=== PATIENT | male | born 1950 | race Caucasian/White ===

== ENCOUNTER 2022-01-28 12:40 | Outpatient (CLI) | payer MEDICARE, SELFPAY ==
[2022-01-28 20:50] LABS: Alanine Aminotransferase 22 U/L (6-50); Albumin Level 4.3 g/dL (3.5-5.1); Alkaline Phosphatase 72 U/L (38-126); Anion Gap 13 mmol/L (8-16); Aspartate Amino Transferase 38 U/L (17-59); Bilirubin,Total 1.3 mg/dL (0.2-1.3); Blood Urea Nitrogen 23 mg/dL (9-20); Calcium 9.3 mg/dL (8.4-10.2); Carbon Dioxide 30 mmol/L (22-30); Chloride 94 mmol/L (98-107); Estimated Glomerular Filt Rate 60; Glucose 140 mg/dL (65-110); Potassium 3.9 mmol/L (3.4-5.0); Sodium 137 mmol/L (137-145)
[2022-01-28 20:51] LABS: Hemoglobin A1C 6.8 % (<5.7)
== END 2022-01-28 12:41 | disposition home or self-care (01) ==
LOC: ANHGOSHLAB 12:43
PROVIDERS: PCP Family Medicine; Visit Provider Family Medicine
DX: E11.9 Type 2 diabetes mellitus without complications (principal); E78.5 Hyperlipidemia, unspecified; I48.0 Paroxysmal atrial fibrillation; I50.22 Chronic systolic (congestive) heart failure; I12.9 Hypertensive chronic kidney disease with stage 1 through stage 4 chronic kidney disease, or unspecified chronic kidney disease; N18.30 Chronic kidney disease, stage 3 unspecified
CPT/HCPCS: 36415; 80053; 83036

== ENCOUNTER → 2022-04-26 08:44 | Outpatient (CLI) | payer MEDICARE, SELFPAY ==
--- NOTE | ~2022-04-26 | US_ITS ---
Limited Abdominal Sonogram: Real-time sonographic imaging of the right upper quadrant was performed. Clinical History: Abnormal liver findings on outside exam Findings: The liver appears normal with no evidence of mass lesion or bile duct dilatation. Main por isai vein demonstrates normal direction of flow. The gallbladder is relatively contracted, probable sl udge and echogenic, shadowing stones. No definite gallbladder wall thickening. The common bile duct m easures 3 mm. The visualized pancreas, aorta, and IVC are unremarkable. Impression: Cholelithiasis and probable gallbladder sludge. Reviewed, dictated and finalized at location [] ULAR CLERK Impression: Cholelithiasis and probable gallbladder sludge.
== END ==
PROVIDERS: PCP Family Medicine; Visit Provider Family Medicine
DX: R93.2 Abnormal findings on diagnostic imaging of liver and biliary tract (principal); K80.20 Calculus of gallbladder without cholecystitis without obstruction
CPT/HCPCS: 76705

== ENCOUNTER 2022-07-17 09:49 | Outpatient (CLI) | payer MEDICARE, SELFPAY ==
[2022-07-17 18:10] LABS: Basophils Absolute Auto 0.1 K/mm3 (0.0-0.1); Basophils Percent Auto 0.9 % (0.2-1.2); Eosinophils Absolute Auto 0.3 K/mm3 (0-0.3); Eosinophils Percent Auto 4.2 % (0-4.4); Hematocrit 42.1 % (42.0-52.0); Hemoglobin 14.4 g/dL (14.0-18.0); Immature Granulocyte Absolute 0.04 K/mm3 (0.00-0.031); Immature Granulocyte Percent A 0.6 % (0-0.5); Lymphocytes Absolute Auto 0.79 K/mm3 (0.9-3.2); Lymphocytes Percent Auto 11.8 % (18.3-44.2); Mean Corpuscular HGB Conc 34.2 g/dl (32-36); Mean Corpuscular Hemoglobin 32.6 pg (26-34); Mean Corpuscular Volume 95.2 fl (80-100); Mean Platelet Volume 10.8 fl (7.4-10.4); Monocytes Absolute Auto 0.7 K/mm3 (0.1-0.6); Monocytes Percent Auto 10.8 % (2.6-8.5); Neutrophils Absolute Auto 4.8 K/mm3 (1.3-6.7); Neutrophils Percent Auto 71.7 % (45.5-73.1); Platelet Count Result 165 k/mm3 (150-375); Red Blood Count 4.42 M/mm3 (4.6-6.20); Red Cell Distribution Width 12.5 % (11.5-14.5); White Blood Count 6.7 K/mm3 (4.5-10.0)
[2022-07-17 18:34] LABS: Alanine Aminotransferase 27 U/L (6-50); Albumin Level 4.4 g/dL (3.5-5.1); Alkaline Phosphatase 101 U/L (38-126); Anion Gap 5 mmol/L (8-16); Aspartate Amino Transferase 42 U/L (17-59); Bilirubin,Total 0.8 mg/dL (0.2-1.3); Blood Urea Nitrogen 19 mg/dL (9-20); Calcium 9.8 mg/dL (8.4-10.2); Carbon Dioxide 32 mmol/L (22-30); Chloride 99 mmol/L (98-107); Cholesterol 174 mg/dL (0-200); Estimated Glomerular Filt Rate > 60; Glucose 148 mg/dL (65-110); HDL Direct 76 mg/dL; Potassium 5.5 mmol/L (3.4-5.0); Sodium 136 mmol/L (137-145); Triglycerides 99 mg/dL (<150)
[2022-07-17 18:50] LABS: LDL Cholesterol Direct 74 mg/dL
[2022-07-17 18:54] LABS: Creatinine Urine 60.6 mg/dL
[2022-07-17 18:55] LABS: Vitamin D 25 Hydroxy 47.7 ng/mL
[2022-07-17 18:57] LABS: MALB Creatinine Ratio 132.7 mg/g (0-30); Microalbumin Urine Random 80.4 mg/L (0-16.7)
[2022-07-17 19:18] LABS: Hemoglobin A1C 6.9 % (<5.7)
== END 2022-07-17 09:50 | disposition home or self-care (01) ==
LOC: ANHGOSHLAB 09:51
PROVIDERS: PCP Family Medicine; Visit Provider Family Medicine
DX: E78.5 Hyperlipidemia, unspecified (principal); E11.9 Type 2 diabetes mellitus without complications; Z95.2 Presence of prosthetic heart valve; Z12.5 Encounter for screening for malignant neoplasm of prostate; I25.10 Atherosclerotic heart disease of native coronary artery without angina pectoris; I48.0 Paroxysmal atrial fibrillation; G25.2 Other specified forms of tremor; E53.8 Deficiency of other specified B group vitamins; E55.9 Vitamin D deficiency, unspecified; I10 Essential (primary) hypertension
CPT/HCPCS: 36415; 80053; 80061; 82043; 82306; 82607; 83036; 84153; 84443; 85025; G0103

== ENCOUNTER 2022-07-26 12:34 | Outpatient (RCR) | payer MEDICARE, SELFPAY ==
--- NOTE | 2022-07-26 13:55 | PTOPEVDC ---
Assessment and note entered by Kathe Cochran, PT, DPT Thank you for referring Calos Avila to [facility].? An evaluation has been completed. No further treatment is needed. Evaluation Information Assessment Status Evaluation Diagnosis deconditioning Onset 6 years Subjective Information Pt states he had major heart surgery 6 years ago, he states that surgery caused him to lose all of his muscle mass. Pt states he fell in Feb of last year, that caused him not to go to the gym for about 3 months. Prior to his falls he states he and his have gone to the gym 6x/wk for 30 mins a day. They started returning to the gym last week. Reported Pain Level Pain Score 0: Self Report Assessment PT Clinical Summary Calos presents to therapy today for his initial evaluation with a diagnosis of unsteadiness on feet and ursula knee pain. Pt reports not being limited by pain this date. During functional movement and balance assessments but scores well on all of the tests. He completed the TUG in 15.4s (15s in the cutoff score), 12s on the TUG (12s in the cutoff score), 49/56 on the RUFFIN (anything < 45 at greater risk for falls). He demonstrates a gait speed that is slightly slower compared to his age matched peers. Upon evaluation it was determined that Calos demonstrates good safety awareness, good balance, and good strength and does not requires skilled therapy interventions at this time. He was issued a home program and was instructed to complete these in addition to his daily exercises. Plan of Care PT Services Indicated No Treatment Frequency and discharge, no skilled needs Duration
== END 2022-07-26 15:52 | disposition home or self-care (01) ==
LOC: ANHGOSHPT 12:34
PROVIDERS: PCP Family Medicine; Visit Provider Family Medicine
DX: R26.81 Unsteadiness on feet (principal); M25.561 Pain in right knee; M25.562 Pain in left knee
CPT/HCPCS: 97110; 97161

== ENCOUNTER 2022-07-26 12:35 | Outpatient (CLI) | payer MEDICARE, SELFPAY ==
[2022-07-26 19:46] LABS: Anion Gap 6 mmol/L (8-16); Blood Urea Nitrogen 23 mg/dL (9-20); Calcium 10.3 mg/dL (8.4-10.2); Carbon Dioxide 31 mmol/L (22-30); Chloride 95 mmol/L (98-107); Estimated Glomerular Filt Rate 60; Glucose 107 mg/dL (65-110); Potassium 5.4 mmol/L (3.4-5.0); Sodium 132 mmol/L (137-145)
[2022-07-29 21:33] LABS: PSA, Free 0.56 ng/mL; PSA, Total 4.4 ng/mL (<=4.0); Percent Free Prostate Spec Ag 13 % (>25)
== END 2022-07-26 12:36 | disposition home or self-care (01) ==
LOC: ANHGOSHLAB 12:38
PROVIDERS: PCP Family Medicine; Visit Provider Family Medicine
DX: R97.20 Elevated prostate specific antigen [PSA] (principal); E87.5 Hyperkalemia
CPT/HCPCS: 36415; 80048; 84153; 84154; 97110; 97161

== ENCOUNTER 2022-08-15 08:19 | Outpatient (CLI) | payer MEDICARE, SELFPAY ==
[2022-08-15 18:50] LABS: Alanine Aminotransferase 24 U/L (6-50); Albumin Level 4.4 g/dL (3.5-5.1); Alkaline Phosphatase 80 U/L (38-126); Anion Gap 5 mmol/L (8-16); Aspartate Amino Transferase 32 U/L (17-59); Bilirubin,Total 1.3 mg/dL (0.2-1.3); Blood Urea Nitrogen 17 mg/dL (9-20); Calcium 9.5 mg/dL (8.4-10.2); Carbon Dioxide 33 mmol/L (22-30); Chloride 95 mmol/L (98-107); Estimated Glomerular Filt Rate > 60; Glucose 145 mg/dL (65-110); Potassium 5.1 mmol/L (3.4-5.0); Sodium 133 mmol/L (137-145)
== END 2022-08-15 08:20 | disposition home or self-care (01) ==
LOC: ANHGOSHLAB 08:20
PROVIDERS: PCP Family Medicine; Visit Provider Nurse Practitioner
DX: E87.5 Hyperkalemia (principal)
CPT/HCPCS: 36415; 80053

== ENCOUNTER 2022-09-05 08:09 | Outpatient (CLI) | payer MEDICARE, SELFPAY ==
[2022-09-05 19:34] LABS: Alanine Aminotransferase 25 U/L (6-50); Albumin Level 4.2 g/dL (3.5-5.1); Alkaline Phosphatase 74 U/L (38-126); Anion Gap 3 mmol/L (8-16); Aspartate Amino Transferase 37 U/L (17-59); Blood Urea Nitrogen 18 mg/dL (9-20); Calcium 9.7 mg/dL (8.4-10.2); Carbon Dioxide 36 mmol/L (22-30); Chloride 96 mmol/L (98-107); Estimated Glomerular Filt Rate > 60; Glucose 142 mg/dL (65-110); Potassium 4.2 mmol/L (3.4-5.0); Sodium 135 mmol/L (137-145)
== END 2022-09-05 08:10 | disposition home or self-care (01) ==
LOC: ANHGOSHLAB 08:10
PROVIDERS: PCP Family Medicine; Visit Provider Family Medicine
DX: E87.5 Hyperkalemia (principal); I10 Essential (primary) hypertension
CPT/HCPCS: 36415; 80053

== ENCOUNTER 2023-01-16 10:02 | Outpatient (CLI) | payer MEDICARE, SELFPAY ==
[2023-01-16 19:14] LABS: Alanine Aminotransferase 21 U/L (6-50); Albumin Level 4.2 g/dL (3.5-5.1); Alkaline Phosphatase 73 U/L (38-126); Anion Gap 5 mmol/L (8-16); Aspartate Amino Transferase 35 U/L (17-59); Bilirubin,Total 1.2 mg/dL (0.2-1.3); Blood Urea Nitrogen 19 mg/dL (9-20); Calcium 9.7 mg/dL (8.4-10.2); Carbon Dioxide 34 mmol/L (22-30); Chloride 96 mmol/L (98-107); Estimated Glomerular Filt Rate > 60; Glucose 123 mg/dL (65-110); Potassium 4.8 mmol/L (3.4-5.0); Sodium 135 mmol/L (137-145)
[2023-01-16 20:15] LABS: Hemoglobin A1C 6.3 % (<5.7)
== END 2023-01-16 10:03 | disposition home or self-care (01) ==
PROVIDERS: PCP Family Medicine; Visit Provider Family Medicine
DX: E11.9 Type 2 diabetes mellitus without complications (principal); I10 Essential (primary) hypertension; Z79.899 Other long term (current) drug therapy
CPT/HCPCS: 36415; 80053; 83036

== ENCOUNTER 2023-03-11 08:44 | Outpatient (CLI) | payer MEDICARE, SELFPAY ==
[2023-03-11 18:46] LABS: Anion Gap 5 mmol/L (8-16); Blood Urea Nitrogen 25 mg/dL (9-20); Calcium 9.6 mg/dL (8.4-10.2); Carbon Dioxide 33 mmol/L (22-30); Chloride 97 mmol/L (98-107); Estimated Glomerular Filt Rate > 60; Glucose 113 mg/dL (65-110); Sodium 135 mmol/L (137-145)
== END 2023-03-11 08:45 | disposition home or self-care (01) ==
PROVIDERS: PCP Family Medicine; Visit Provider Internal Medicine Cardiovascular Disease
DX: I50.32 Chronic diastolic (congestive) heart failure (principal)
CPT/HCPCS: 36415; 80048

== ENCOUNTER 2023-07-21 09:32 | Outpatient (CLI) | payer MEDICARE, SELFPAY ==
[2023-07-21 10:40] LABS: Basophils Absolute Auto 0.1 K/mm3 (0.0-0.1); Basophils Percent Auto 0.9 % (0.2-1.2); Eosinophils Absolute Auto 0.3 K/mm3 (0-0.3); Eosinophils Percent Auto 3.9 % (0-4.4); Hematocrit 42.8 % (42.0-52.0); Hemoglobin 14.5 g/dL (14.0-18.0); Immature Granulocyte Absolute 0.03 K/mm3 (0.00-0.031); Immature Granulocyte Percent A 0.4 % (0-0.5); Lymphocytes Absolute Auto 0.71 K/mm3 (0.9-3.2); Lymphocytes Percent Auto 10.3 % (18.3-44.2); Mean Corpuscular HGB Conc 33.9 g/dl (32-36); Mean Corpuscular Hemoglobin 33.1 pg (26-34); Mean Corpuscular Volume 97.7 fl (80-100); Mean Platelet Volume 10.5 fl (7.4-10.4); Monocytes Absolute Auto 0.8 K/mm3 (0.1-0.6); Monocytes Percent Auto 11.1 % (2.6-8.5); Neutrophils Absolute Auto 5.1 K/mm3 (1.3-6.7); Neutrophils Percent Auto 73.4 % (45.5-73.1); Platelet Count Result 182 k/mm3 (150-375); Red Blood Count 4.38 M/mm3 (4.6-6.20); Red Cell Distribution Width 12.3 % (11.5-14.5); White Blood Count 6.9 K/mm3 (4.5-10.0)
[2023-07-21 10:47] LABS: Alanine Aminotransferase 22 U/L (6-50); Anion Gap 9 mmol/L (8-16); Aspartate Amino Transferase 40 U/L (17-59); Bilirubin,Total 1.7 mg/dL (0.2-1.3); Blood Urea Nitrogen 25 mg/dL (9-20); Carbon Dioxide 29 mmol/L (22-30); Chloride 97 mmol/L (98-107); Estimated Glomerular Filt Rate 60; Glucose 106 mg/dL (65-110); Potassium 4.4 mmol/L (3.4-5.0); Sodium 135 mmol/L (137-145)
[2023-07-21 10:48] LABS: Albumin Level 4.3 g/dL (3.5-5.1); Alkaline Phosphatase 88 U/L (38-126); Cholesterol 176 mg/dL (0-200); HDL Direct 90 mg/dL; Triglycerides 90 mg/dL (<150)
[2023-07-21 10:59] LABS: LDL Cholesterol Direct 74 mg/dL
[2023-07-21 11:07] LABS: Hemoglobin A1C 6.5 % (<5.7)
[2023-07-21 19:27] LABS: Vitamin D 25 Hydroxy 44.1 ng/mL
[2023-07-21 20:14] LABS: Creatinine Urine 39.5 mg/dL
[2023-07-21 20:17] LABS: MALB Creatinine Ratio 162.8 mg/g (0-30); Microalbumin Urine Random 64.3 mg/L (0-16.7)
== END 2023-07-21 09:33 | disposition home or self-care (01) ==
PROVIDERS: PCP Family Medicine; Visit Provider Family Medicine
DX: E11.9 Type 2 diabetes mellitus without complications (principal); E53.8 Deficiency of other specified B group vitamins; E55.9 Vitamin D deficiency, unspecified; G25.2 Other specified forms of tremor; I48.0 Paroxysmal atrial fibrillation; I50.22 Chronic systolic (congestive) heart failure; Z00.00 Encounter for general adult medical examination without abnormal findings; Z95.2 Presence of prosthetic heart valve; I10 Essential (primary) hypertension; E78.5 Hyperlipidemia, unspecified
CPT/HCPCS: 36415; 80053; 80061; 82043; 82306; 82607; 83036; 84443; 85025

== ENCOUNTER 2023-12-23 10:16 | Outpatient (CLI) | payer MEDICARE, SELFPAY ==
--- NOTE | ~2023-12-23 | XR_ITS ---
XR hand RT min 3V Ordering provider: Ascencion Navarrete MD History: . No injury pain swelling and redness 2nd mp joint for 2 weeks . Comparison: None. FINDINGS: BONES: No acute fracture or dislocation. JOINT SPACES: Narrowing of the proximal and distal interphalangeal joints. Deformity seen in the fift h finger proximal interphalangeal joint. SOFT TISSUES: Normal. IMPRESSION: No acute osseous abnormality right hand. Multiple joint osteoarthritic changes. Deformity in the fifth finger at the proximal interphalangeal joint. Reviewed, dictated and finalized at location A. IMPRESSION: No acute osseous abnormality right hand. Multiple joint osteoarthritic changes. Deformity in the fifth finger at the pro ximal interphalangeal joint.
== END 2023-12-23 10:17 ==
PROVIDERS: PCP Family Medicine; Visit Provider Family Medicine
DX: M79.89 Other specified soft tissue disorders (principal); M19.041 Primary osteoarthritis, right hand
CPT/HCPCS: 73130

== ENCOUNTER 2023-12-23 10:30 | Outpatient (CLI) | payer MEDICARE, SELFPAY ==
[2023-12-23 19:31] LABS: Hemoglobin A1C 6.2 % (<5.7)
[2023-12-23 19:46] LABS: Alanine Aminotransferase 19 U/L (6-50); Albumin Level 4.2 g/dL (3.5-5.1); Alkaline Phosphatase 90 U/L (38-126); Anion Gap 8 mmol/L (4-12); Aspartate Amino Transferase 32 U/L (17-59); Bilirubin,Total 1.2 mg/dL (0.2-1.3); Blood Urea Nitrogen 25 mg/dL (9-20); Calcium 9.6 mg/dL (8.4-10.2); Carbon Dioxide 33 mmol/L (22-30); Chloride 94 mmol/L (98-107); Estimated Glomerular Filt Rate 50; Glucose 154 mg/dL (65-110); Potassium 4.2 mmol/L (3.4-5.0); Sodium 135 mmol/L (137-145); Uric Acid 7.4 mg/dL (3.5-8.5)
== END 2023-12-23 10:31 | disposition home or self-care (01) ==
LOC: ANHGOSHLAB 10:31
PROVIDERS: PCP Family Medicine; Visit Provider Family Medicine
DX: E11.9 Type 2 diabetes mellitus without complications (principal); I10 Essential (primary) hypertension; M10.00 Idiopathic gout, unspecified site
CPT/HCPCS: 36415; 80053; 83036; 84550

== ENCOUNTER 2024-02-05 07:51 | Outpatient (RCR) | payer MEDICARE, SELFPAY ==
--- NOTE | 2024-02-05 08:35 | OTOPEVDC ---
Assessment and note entered by Vishal Smith, OTR/Tyler, CHT Thank you for referring Calos Avila to [facility].? An evaluation has been completed. No further treatment is needed. Evaluation Information & Discharge Notification 02/05/24 Assessment Status Evaluation Diagnosis Pain in right hand, Pain in left hand Subjective Information Patient has a history of gout. He reports his right MCP joint swelled up about 2 months ago, he was experiencing pain and stiffness in his right hand. He reports it has improved immensely. He reports no longer experiencing functional limitations with ADLs. He is retired. Reported Pain Level Pain Score 0: Self Report Assessment OT Clinical Summary Patient referred to OT with pain in bilateral hands. At this time he is no longer experiencing pain or limitations. He reports he wanted to attend the appointment to see if there is anything he can learn. Educated on ROM HEP and he completes with excellent understanding. His slat grader strengths are slightly decreased compared to the norm. He declines putty HEP reporting he has various slat grader strengthening tools at home. Discussed when it's appropriate to use those vs. just performing light ROM. He verbalizes excellent understanding of all materials. Discharging OT with patient independent with HEP. Plan of Care OT Services Indicated No
== END 2024-02-05 09:35 | disposition home or self-care (01) ==
LOC: ANHGOSHOT 07:51
PROVIDERS: PCP Family Medicine; Visit Provider Family Medicine
DX: M79.641 Pain in right hand (principal); M79.642 Pain in left hand
CPT/HCPCS: 97110; 97165

== ENCOUNTER 2024-02-11 08:49 | Outpatient (CLI) | payer MEDICARE, SELFPAY ==
[2024-02-11 19:39] LABS: Alanine Aminotransferase 14 U/L (6-50); Albumin Level 3.9 g/dL (3.5-5.1); Alkaline Phosphatase 73 U/L (38-126); Anion Gap 7 mmol/L (4-12); Aspartate Amino Transferase 31 U/L (17-59); Blood Urea Nitrogen 20 mg/dL (9-20); Calcium 9.7 mg/dL (8.4-10.2); Carbon Dioxide 32 mmol/L (22-30); Chloride 96 mmol/L (98-107); Estimated Glomerular Filt Rate > 60; Glucose 224 mg/dL (65-110); Potassium 4.4 mmol/L (3.4-5.0); Sodium 135 mmol/L (137-145)
== END 2024-02-11 08:50 | disposition home or self-care (01) ==
PROVIDERS: PCP Family Medicine; Visit Provider Family Medicine
DX: I10 Essential (primary) hypertension (principal)
CPT/HCPCS: 36415; 80053

== ENCOUNTER 2024-03-29 07:30 | Emergency (ER) | payer MEDICARE, SELFPAY ==
[2024-03-29 07:38] VITALS: BP 124/75; PULSE 72; RESP 19; TEMP 36.4; O2SAT 100
--- NOTE | 2024-03-29 07:51 | ECG_ITS ---
Test Date: 2024-03-29 07:49:19 Measurements Intervals [place] Rate: 72 P: 0 TN: 0 QRS: 36 QRSD: 93 T: 16 QT: 394 QTc: 434 Interpretive Statements ATRIAL FIBRILLATION POSSIBLE ANTERIOR MYOCARDIAL INFARCTION , PROBABLY OLD BASELINE ARTIFACT- II, III, AVR, AVL, AVF, V1 ABNORMAL ECG No previous ECG available for comparison Electronically Signed On 03-29-2024 08:10:57 [employer]OR [employer] by Terry Conway D.O.
[2024-03-29 08:08] LABS: Basophils Percent Auto 0.8 % (0.2-1.2); Eosinophils Absolute Auto 0.2 K/mm3 (0-0.3); Eosinophils Percent Auto 3.8 % (0-4.4); Hemoglobin 14.5 g/dL (14.0-18.0); Immature Granulocyte Absolute 0.06 K/mm3 (0.00-0.031); Immature Granulocyte Percent A 1.1 % (0-0.5); Lymphocytes Absolute Auto 1.25 K/mm3 (0.9-3.2); Lymphocytes Percent Auto 23.8 % (18.3-44.2); Mean Corpuscular HGB Conc 35.4 g/dl (32-36); Mean Corpuscular Hemoglobin 33.9 pg (26-34); Mean Corpuscular Volume 95.8 fl (80-100); Mean Platelet Volume 9.6 fl (7.4-10.4); Monocytes Absolute Auto 0.4 K/mm3 (0.1-0.6); Monocytes Percent Auto 7.4 % (2.6-8.5); Neutrophils Absolute Auto 3.3 K/mm3 (1.3-6.7); Neutrophils Percent Auto 63.1 % (45.5-73.1); Platelet Count Result 152 k/mm3 (150-375); Red Blood Count 4.28 M/mm3 (4.6-6.20); Red Cell Distribution Width 12.6 % (11.5-14.5); White Blood Count 5.3 K/mm3 (4.5-10.0)
[2024-03-29 08:20] LABS: Alanine Aminotransferase 16 U/L (6-50); Albumin Level 4.1 g/dL (3.5-5.1); Alkaline Phosphatase 75 U/L (38-126); Anion Gap 14 mmol/L (4-12); Aspartate Amino Transferase 30 U/L (17-59); Bilirubin,Total 0.4 mg/dL (0.2-1.3); Blood Urea Nitrogen 18 mg/dL (9-20); Calcium 9.6 mg/dL (8.4-10.2); Carbon Dioxide 23 mmol/L (22-30); Chloride 96 mmol/L (98-107); Estimated CRCL calculation 55 ml/min; Estimated Glomerular Filt Rate > 60; Glucose 95 mg/dL (65-110); Potassium 3.9 mmol/L (3.4-5.0); Sodium 133 mmol/L (137-145)
[2024-03-29 08:22] LABS: Prothrombin Time 13.8 Seconds (11.1-14.7)
[2024-03-29 08:23] LABS: Partial Thromboplastin Time 30.8 Seconds (22.3-36.8)
[2024-03-29 08:30] VITALS: BP 119/80; PULSE 83; RESP 15; O2SAT 99
[2024-03-29 08:43] LABS: Influenza A QL RT-PCR Negative (Negative); Influenza B QL RT-PCR Negative (Negative); RSV RNA, RT-PCR Negative (Negative); SARS-CoV-2 RNA PCR Negative (Negative)
--- NOTE | 2024-03-29 08:43 | ED.GENADULT ---
HPI - General Adult General Chief complaint: Altered Mental Status Stated complaint: confusion Time Seen by Provider: 03/29/24 07:50 History of Present Illness HPI narrative: 73-year-old male with history of large prostate present to the emergency department for evaluation for acute onset of confusion with associated urinary pain. Patient did start taking Keflex last night due to concern for a urinary tract infection. Patient does describe worsening urinary retention, decreased urinary caliber and intermittently requiring the need to sit down to urinate. Patient does follow-up with Urology for large prostate. Patient states he has been unable to urinate since last night. Patient does describe lower abdominal discomfort. Bedside bladder scan did show greater than 2400 mL of retained urine. Related Data Home Medications Medication Instructions Recorded Confirmed apixaban 5 mg tablet (Eliquis) 5 mg PO BID 04/02/19 01/26/24 aspirin 81 mg tablet,delayed 81 mg PO DAILY 04/02/19 01/26/24 release (Adult Aspirin Regimen) carvedilol 12.5 mg tablet 12.5 mg PO Q12H 04/02/19 01/26/24 furosemide 40 mg tablet 40 mg PO QAM 04/02/19 01/26/24 acetaminophen 650 mg 650 mg PO Q8H 01/03/20 01/26/24 tablet,extended release ferrous sulfate 325 mg (65 mg 325 mg PO DAILY 01/03/20 01/26/24 iron) tablet (iron) atorvastatin 40 mg tablet 40 mg PO QHS 01/28/22 01/26/24 diphenhydramine HCl 50 mg capsule 50 mg PO QHS 01/28/22 01/26/24 (Unisom SleepGels) omeprazole magnesium 20 mg 20 mg PO DAILY PRN 07/17/22 01/26/24 tablet,delayed release (Prilosec OTC) cholecalciferol (vitamin D3) 25 25 mcg PO DAILY 01/16/23 01/26/24 mcg (1,000 unit) tablet docusate sodium 100 mg capsule 100 mg PO DAILY 01/16/23 01/26/24 (Dulcolax Stool Softener (docusate)) spironolactone 25 mg tablet 12.5 mg PO DAILY 01/16/23 01/26/24 Allergies Allergy/AdvReac Type Severity Reaction Status Date / Time No Known Allergies Allergy Verified 03/29/24 07:43 Review of Systems Review of Systems: All systems reviewed & are unremarkable except as noted in HPI and below [facility] Past Medical History Medical History Ascending aortic aneurysm CAD in [place] artery Chronic low back pain without sciatica Chronic systolic congestive heart failure Dyslipidemia Elevated PSA Essential (primary) hypertension Intention tremor Osteoarthritis Paroxysmal atrial fibrillation Renal insufficiency Type 2 diabetes mellitus without complication, without long-term current use of insulin Surgical History Surgical History History of aortic valve replacement (~04/2016) 04/2016 History of tonsillectomy (~1969) 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 (~04/2016) 04/2016 Social History Social History Smoking status: Never smoker Second hand tobacco smoke exposure: No Smoking end date: 05/12/05 Alcohol intake: current Substance use: never Substance use type: does not use Lack of Transportation: No Lack of Food: Never True Current Housing: I Have Housing Concerned About Future Housing: No Difficulty Paying Gas/Electric Bills: No Difficulty Paying for Meds: No Currently Unemployed: No Education: High School Diploma/GED Living arrangements: with family Occupation/Education: retired Gender identity (if verbalized by the patient): Male Sexual Orientation (if Verbalized by the Patient): Straight or Heterosexual Agree to blood products: Yes Exam Narrative: APPEARANCE: Uncomfortable appearing HEAD: normocephalic, atraumatic. EYES: PERRLA/EOMI, conjunctivae clear. NOSE: Normal no drainage EARS:TMS clear with good light reflex. THROAT: Pharynx clear, no exudate. NECK: Supple. No adenopathy, no masses. RESPIRATORY: Airway patent, respirations nonlabored. Clear to auscultation bilaterally, no rales, rhonchi, wheezing. CARDIOVASCULAR: Regular rate and rhythm without murmurs rubs or gallops. ABDOMINAL: Distended abdomen MUSCULOSKELETAL: Moves all extremities. Strength/ROM intact, No edema, No calf tenderness. NEURO: Alert. Cranial nerves II through XII intact. Good gait. Good coordination SKIN: Warm, dry. Normal Color Course Vital Signs Vital signs: Vital Signs Temperature 97.5 F L 03/29/24 07:38 Pulse Rate 72 03/29/24 07:38 Respiratory Rate 19 03/29/24 07:38 Blood Pressure 124/75 03/29/24 07:38 Pulse Oximetry 100 03/29/24 07:38 Oxygen Delivery Room Air 03/29/24 07:38 Temperature 97.5 F L 03/29/24 07:38 Pulse Rate 93 03/29/24 12:04 Respiratory Rate 16 03/29/24 12:04 Blood Pressure 114/81 03/29/24 12:04 Pulse Oximetry 100 03/29/24 12:04 Oxygen Delivery Room Air 03/29/24 07:38 Medical Decision Making MDM Narrative Medical decision making narrative: 73-year-old male present to the emergency department for evaluation for urinary pain and urinary retention. Patient's bedside bladder scan postvoid residual did show greater than 2500 mL of retained urine. Joseph catheter was placed. Patient did feel improved after draining his bladder. Patient is afebrile with no leukocytosis and hemoglobin of 14.5. Patient's INR is 1.0. Patient has no acute abnormalities on his CMP with a normal creatinine. UA shows no underlying evidence infection. Patient family updated the results of the workup. Patient will be discharged home with a Joseph catheter due to excessive amount of urinary retention. Patient already does have follow-up with Urology. All questions and concerns were addressed. Patient will be started on Flomax at time of discharge. Differential Diagnosis Differential Diagnosis: Urinary retention, acute kidney injury, urinary tract infection Vital Signs Vital Signs: Vital Signs Temperature 97.5 F L 03/29/24 07:38 Pulse Rate 72 03/29/24 07:38 Respiratory Rate 19 03/29/24 07:38 Blood Pressure 124/75 03/29/24 07:38 Pulse Oximetry 100 03/29/24 07:38 Oxygen Delivery Room Air 03/29/24 07:38 Temperature 97.5 F L 03/29/24 07:38 Pulse Rate 93 03/29/24 12:04 Respiratory Rate 16 03/29/24 12:04 Blood Pressure 114/81 03/29/24 12:04 Pulse Oximetry 100 03/29/24 12:04 Oxygen Delivery Room Air 03/29/24 07:38 Lab Data Lab results reviewed: Yes I reviewed the patient's lab results. 11/18/24 07:55 03/29/24 07:55 Labs: Lab Results 03/29/24 03/29/24 03/29/24 Range/Units 07:55 08:01 08:46 WBC 5.3 (4.5-10.0) K/mm3 RBC 4.28 L (4.6-6.20) M/mm3 Hgb 14.5 (14.0-18.0) g/dL Hct 41.0 L (42.0-52.0) % MCV 95.8 (80-100) fl MCH 33.9 (26-34) pg MCHC 35.4 (32-36) g/dl RDW 12.6 (11.5-14.5) % Plt Count 152 (150-375) k/mm3 MPV 9.6 (7.4-10.4) fl Immature Gran % (Auto) 1.1 H (0-0.5) % Neut % (Auto) 63.1 (45.5-73.1) % Lymph % (Auto) 23.8 (18.3-44.2) % Grand % (Auto) 7.4 (2.6-8.5) % Eos % (Auto) 3.8 (0-4.4) % Baso % (Auto) 0.8 (0.2-1.2) % Lymph # (Auto) 1.25 (0.9-3.2) K/mm3 Grand # (Auto) 0.4 (0.1-0.6) K/mm3 Eos # (Auto) 0.2 (0-0.3) K/mm3 Baso # (Auto) 0.0 (0.0-0.1) K/mm3 Abs Immat Gran (auto) 0.06 H (0.00-0.031) K/mm3 Absolute Neuts (auto) 3.3 (1.3-6.7) K/mm3 Absolute Nucleated RBC 0.000 (0.0-0.012) K/mm3 Nucleated RBC % 0.0 (0.0-0.2) % PT 13.8 (11.1-14.7) Seconds INR 1.0 APTT 30.8 (22.3-36.8) Seconds Sodium 133 L (137-145) mmol/L Potassium 3.9 (3.4-5.0) mmol/L Chloride 96 L (98-107) mmol/L Carbon Dioxide 23 (22-30) mmol/L Anion Gap 14 H (4-12) mmol/L BUN 18 (9-20) mg/dL Creatinine 1.10 (0.7-1.3) mg/dL Estim Creat Clear Calc 55 ml/min Estimated GFR > 60 (59 - ) Glucose 95 (65-110) mg/dL Calcium 9.6 (8.4-10.2) mg/dL Total Bilirubin 0.4 (0.2-1.3) mg/dL AST 30 (17-59) U/L ALT 16 (6-50) U/L Alkaline Phosphatase 75 (38-126) U/L Total Protein 7.0 (6.3-8.2) g/dL Albumin 4.1 (3.5-5.1) g/dL Urine Color Yellow (Yellow) Urine Appearance Cloudy H (Clear) Urine pH 5.5 (5.0-9.0) Ur Specific [place] 1.017 (1.001-1.035) Urine Protein Negative (Negative) mg/dL Urine Glucose (UA) 3+ H (Negative) mg/dL Urine Ketones Negative (Negative) mg/dL Ur Blood (Man) Negative (Negative) Urine Nitrate Negative (Negative) Urine Bilirubin Negative (Negative) Urine Urobilinogen 0.2 (<2.0) mg/dL Add Ur Microanalysis Reviewed Leukocyte Esterase Rfl Negative (Negative) INDRA/UL Urine RBC 0-2 (0-2) /hpf Urine WBC 0-5 (0-3) /hpf Ur Squamous Epith Cells None seen (Few) /hpf Urine Bacteria None seen /hpf Urine Casts 0-2 Influenza A (RT-PCR) Negative (Negative) Influenza B (RT-PCR) Negative (Negative) RSV (RT-PCR) Negative (Negative) SARS-CoV-2 RNA (RT-PCR) Negative (Negative) Discharge Plan Discharge Clinical Impression: Acute urinary retention Patient Disposition: Home, Self-Care Condition: Stable Instructions: Antibiotic Form, Urinary Retention in Men (ED), Joseph Catheter Placement and Care (ED) Additional Instructions: Joseph catheter care as directed. Flomax as directed until completed. Have close follow-up with Urology. If you have any worsening symptoms then please call or return to the emergency department. Prescriptions: New tamsulosin [Flomax] 0.4 mg capsule 0.4 mg PO DAILY Qty: 20 0RF No Action Prilosec OTC 20 mg tablet,delayed release (DR/EC) 20 mg PO DAILY PRN ferrous sulfate [iron] 325 mg (65 mg iron) tablet 325 mg PO DAILY acetaminophen 650 mg tablet extended release 650 mg PO Q8H cholecalciferol (vitamin D3) 25 mcg (1,000 unit) tablet 25 mcg PO DAILY docusate sodium [Dulcolax Stool Softener (dss)] 100 mg capsule 100 mg PO DAILY aspirin [Adult Aspirin Regimen] 81 mg tablet,delayed release (DR/EC) 81 mg PO DAILY carvedilol 12.5 mg tablet 12.5 mg PO Q12H Eliquis 5 mg tablet 5 mg PO BID furosemide 40 mg tablet 40 mg PO QAM atorvastatin 40 mg tablet 40 mg PO QHS spironolactone 25 mg tablet 12.5 mg PO DAILY diphenhydramine HCl [Unisom SleepGels] 50 mg capsule 50 mg PO QHS cyanocobalamin (vitamin B-12) 1,000 mcg tablet, sublingual 1,000 mcg sublingual DAILY Qty: 90 2RF metformin 500 mg tablet 500 mg PO BID Qty: 180 1RF benazepril 20 mg tablet 20 mg PO DAILY Qty: 90 1RF Jardiance 10 mg tablet 10 mg PO QAM Qty: 90 1RF Follow-up/Referrals: Ascencion Navarrete MD [Primary Care Provider] - Osvaldo Hansen MD [Physician] -
[2024-03-29 09:06] LABS: Add Urine Microscopic? YES; Appearance Urine Cloudy (Clear); Bacteria Urine None Seen /hpf; Bilirubin Urine Negative (Negative); Blood Urine Negative (Negative); Color Urine Yellow (Yellow); Glucose Urine UA 3+ mg/dL (Negative); Ketones Urine Negative (Negative); Leukocyte Esterase Ur Negative LEU/UL (Negative); Need Manual Microscopic Reviewed; Nitrate Urine Negative (Negative); Non Pathogenic Casts 0-2; Protein Urine Negative (Negative); RBC Urine 0-2 /hpf (0-2); Specific Grav Ur 1.017 (1.001-1.035); Squamous Epithelial Cell Urine None Seen /hpf (Few); Urobilinogen Urine 0.2 mg/dL (<2.0); WBC Urine 0-5 /hpf (0-3); pH Urine 5.5 (5.0-9.0)
[2024-03-29 09:30] VITALS: BP 117/69; PULSE 74; RESP 16; O2SAT 100
--- NOTE | 2024-03-29 09:40 | PC.NURSE ---
Pt has had a total of 3000 ml urine output since brush placed.
[2024-03-29] MEDS: TAMSULOSIN HCL 0.4 MG CAPSULE PO (12:03)
[2024-03-29 12:04] VITALS: BP 114/81; PULSE 93; RESP 16; O2SAT 100
== END 2024-03-29 12:35 | disposition home or self-care (01) ==
PROVIDERS: Emergency Provider Emergency Medicine; PCP Family Medicine
DX: N40.1 Benign prostatic hyperplasia with lower urinary tract symptoms (principal); R33.8 Other retention of urine; Z20.822 Contact with and (suspected) exposure to COVID-19; I25.10 Atherosclerotic heart disease of native coronary artery without angina pectoris; I50.22 Chronic systolic (congestive) heart failure; I11.0 Hypertensive heart disease with heart failure; I48.0 Paroxysmal atrial fibrillation; E78.5 Hyperlipidemia, unspecified; E11.9 Type 2 diabetes mellitus without complications; N28.9 Disorder of kidney and ureter, unspecified; M19.90 Unspecified osteoarthritis, unspecified site; Z95.2 Presence of prosthetic heart valve; Z95.1 Presence of aortocoronary bypass graft; Z87.891 Personal history of nicotine dependence; Z79.82 Long term (current) use of aspirin; Z79.01 Long term (current) use of anticoagulants; Z79.84 Long term (current) use of oral hypoglycemic drugs; R94.31 Abnormal electrocardiogram [ECG] [EKG]
CPT/HCPCS: 36415; 51702; 80053; 81001; 85025; 85610; 85730; 87637; 93005; 99284; A9270

== ENCOUNTER 2024-08-09 10:08 | Outpatient (CLI) | payer MEDICARE, SELFPAY ==
--- OUTSIDE RECORDS SUMMARY | 2024-08-09 11:19 | XMS_ITS | Referral Summary ---
Author Organization [facility] [place] [address] [place] [address] [address] [place] [address] Care Team Providers Care Director Credit Risk Name Role Phone Yenny Navarrete MD Primary Care Provider Encounters Date Type Department Care Team Description 06/15/2024 Telephone [facility] Cardiology [address] [place] [address] Adrian Salinas MD Med Refill; samples 05/26/2024 Telephone [facility] Cardiology [address] [place] [address] Adrian Salinas MD samples 05/11/2024 Telephone [facility] [address] [facility] [address] [place] [address] Adrian Salinas MD samples from Last 3 Months Allergies No known active allergies Medications acetaminophen (TYLENOL) 325 mg tablet take 1 tablet by oral route every 6 hours as needed 0 0 7 Active metFORMIN (GLUCOPHAGE) 1,000 mg tablet take 1 tablet by oral route 2 times every day with morning and evening meals 0 0 6 Active Additional Information Patient taking differently: 500 mg, Reported on 02/04/2024 aspirin (ASPIRIN LOW DOSE) 81 mg tablet take 1 tablet by oral route every day 0 0 7 Active ferrous sulfate 325 mg (65 mg of elemental iron) tablet take 1 tablet by ORAL route every day 0 0 7 Active omeprazole (PriLOSEC) 40 mg capsule take 1 capsule by oral route every day before a meal 0 0 7 Active doxylamine (UNISOM, DOXYLAMINE,) 25 mg tablet Take 1 tablet po qd 0 0 7 Active benazepriL (LOTENSIN) 40 mg tablet Take 1 tablet (40 mg total) by mouth daily 90 tablet 1 3 Active Jardiance 10 mg tablet Take 1 tablet (10 mg total) by mouth every morning 90 tablet 3 4 Active carvediloL (COREG) 12.5 mg tablet TAKE 1 TABLET(12.5 MG) BY MOUTH TWICE DAILY WITH MEALS 180 tablet 3 4 Active atorvastatin (LIPITOR) 40 mg tablet TAKE 1 TABLET(40 MG) BY MOUTH DAILY 90 tablet 1 4 Active spironolactone (ALDACTONE) 25 mg tablet Take 1 tablet (25 mg total) by mouth daily 90 tablet 2 4 Active furosemide (LASIX) 40 mg tablet TAKE 1 TABLET(40 MG) BY MOUTH DAILY 90 tablet 2 5 Active apixaban (Eliquis) 5 mg tablet TAKE 1 TABLET BY MOUTH TWICE DAILY 180 tablet 1 5 Active Active Problems Problem Noted Date Diagnosed Date H/O cardiomyopathy 08/22/2021 Mixed diabetic hyperlipidemi a associated with type 2 diabetes mellitus 08/22/2021 Chronic heart failure with preserved ejection fr action 06/06/2020 Chronic anticoagulation 10/25/2016 Surgical follow-up care 06/06/2016 Overview (08/16/2016): Surgery follow-up Coronary artery disease invo lving [place] coronary artery of [place] heart without angina pectoris 05/30/2016 Overview (08/16/2016): Coronary artery disease involving [place] coronary artery of [place] heart without angina pectoris S/P aortic valve replacement with bioprosthetic valve 05/30/2016 Overview (08/16/2016): S/P aortic valve replacement with bioprosthetic valve Chronic systolic heart failure 05/30/2016 Overview (08/16/2016): Chronic systolic heart failure Orthostatic hypotension 05/30/2016 Overview (08/16/2016): Orthostatic hypotension History of coronary artery bypass surgery 2016 Overview (08/16/2016): S/P CABG x 3 Persistent atrial fibrillation 05/30/2016 Overview (08/16/2016): Paroxysmal atrial fibrillation Cardiomyopathy 05/30/2016 Overview (08/16/2016): Other cardiomyopathy Atrial fibrillation 04/02/2016 Overview (08/16/2016): Atrial fibrillation, unspecified type Pulmonary hypertension 04/02/2016 Overview (08/16/2016): Pulmonary HTN Dyspnea on exertion 04/02/2016 Overview (08/16/2016): SINGH (dyspnea on exertion) Ascending aortic aneurysm 04/02/2016 Overview (08/16/2016): Ascending aortic aneurysm Congestive cardiomyopathy 04/02/2016 Overview (08/16/2016): Dilated cardiomyopathy Benign hypertension 04/02/2016 Overview (08/16/2016): HTN (hypertension), benign 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 04/02/2016 Overview (08/16/2016): 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 Resolved Problems Problem Noted Date Diagnosed Date Resolved Date Mixed hyperlipidemia 08/22/2021 022 History of major vascular surgery 05/30/2016 02/25/2022 Overview (08/16/2016): Status post ascending aortic aneurysm repair Dyslipidemia 04/02/2016 02/25/2022 Overview (08/16/2016): Dyslipidemia Immunizations Immunization Administration Dates Next Due Tdap 03/11/2022 Social History Tobacco Use Types Packs/Day Years Used Date Smoking Tobacco: Former Smokeless Tobacco: Never Tobacco Cessation:Counseling Given: Not Answered Alcohol Use Standard Drinks/Week Comments Yes 5 (1 standard drink = 0.6 oz pur e alcohol) AUDIT-C Answer Date Recorded Q1: How often do you have a drink containing alc ohol? 2-3 times a week 03/19/2022 Q2: How many drinks containi ng alcohol do you have on a typical day when you are drinking? 3 or 4 03/19/2022 Q3: How often do you have si x or more drinks on one occasion? Weekly 03/19/2022 Personal Safety Answer Date Recorded Getting School Help Needed Not on file 04/28 Sex and Gender Information Value Date Recorded Sex Assigned at Not on file Legal Sex Male 8:35 AM SALES INCENTIVE ANALYST Gender Identity Male 05/20/2019 10:19 AM SALES INCENTIVE ANALYST Sexual Orientation Straight 05/20/2019 10 :19 AM SALES INCENTIVE ANALYST Last Filed Vital Signs Vital Sign Reading Time Taken Comments Blood Pressure 126/80 02/06/2024 12:12 PM CDT Pulse 78 02/04/2024 7:47 AM CDT Temperature 36.6 C (97.9 F) 03/10/2022 11:35 PM CDT Respiratory Rate 22 03/11/2022 8:00 AM CDT Oxygen Saturation 98% 02/04/2024 7:47 AM CDT Inhaled Oxygen Concentration - - Weight 83.7 kg (184 lb 8 oz) 02/04/2024 7:47 AM CDT Height 177.8 cm (5' 10 ) 02/04/2024 7:47 AM CDT Body Mass Index 26.47 02/04/2024 7:47 AM CDT Plan of Treatment Not on file Procedures Procedure Name Priority Date/Time Associated Diagnosis Comments POCT LIPID PANEL Routine 02/04/2024 7:47 AM CDT Mixed diabetic hyperlipidemia associated with type 2 diabetes mellitus (HCC) Coronary artery disease involving [place] coronary artery of [place] heart without angina pectoris EGFR STAT 03/11/2022 6:[address] CHEST ABDOMEN PELVIS W CONTRAST ED Urgent/IP Urgent 03/11/2022 2:17 AM CDT from Last 3 Months or Most Recently Relevant to Health Maintenance Results * POCT lipid panel (02/04/2024 7:47 AM CDT) Cholesterol, POC 183 mg/dL HDL, POC 85 mg/dL Triglycerides, POC 84 mg/dL LDL Cholesterol POC 82 mg/dL Chol/HDL Ratio, POC 1.0 Non-HDL Cholesterol, POC 98 mg/dL Cholesterol Total, POC 183 mg/dL Capillary blood 02/04/2024 7 :47 AM CDT Adrian Salinas MD POINT OF CARE TEST ORDERA BLES Final Result * (ABNORMAL) eGFR (03/11/2022 6:51 AM CDT) eGFR 80(L) 90 - 130 mL/min/1. 73 m2 [facility] Comment: Interpretive Data Reference Interval Normal >/= 90 mL/min/1.73m2 Mildly decreased* 60 - 89 mL/min/1.73m2 Mildly to moderately decreased 45 - 59 mL/min/1.73m2 Moderately to severely decreased 30 - 44 mL/min/1.73m2 Severely decreased 15 - 29 mL/min/1.73m2 Kidney Failure < 15 mL/min/1.73m2 *Relative to young adult level Estimated glomerular filtration rate is determined by the 2020 CKD-EPI equation recommended by the National Kidney Foundation (A Unifying Approach to GFR Estimation: Recommendations of the NKF-ASK Task Force on Reassessing the Inclusion of Race in Diagnosing Kidney Disease, JASN 2020). The CKD-EPI equation should not be used for patients with unstable renal function and has not been validated in children and those over 70. Current interpretive data was last reviewed 2021. Blood 03/11/2022 6:51 AM CDT 03/11/2022 6:59 AM CDT Jihan Humphries DO LAB BLOOD ORDERABLES Final R esult [facility] [place] [address] * CT Chest Abdomen Pelvis W Contrast (03/11/2022 2:17 AM CDT) Anatomical Region Laterality Modality Body N/A Computed Tomogra phy 03/11/2022 2:42 AM CDT Addenda Addendum by Cali Lanier MD on 06/27/2022 8:04 AM SALES INCENTIVE ANALYST Follow up abdominal ultrasound completed 04/26/22 (media). Mary MANN, RN. Edited by: Mary Correa Electronically signed by: Cali Lanier M.D. Impressions 03/11/2022 8:30 AM CDT 1. No traumatic findings in the chest, abdomen, or pelvis. 2. Incidentally noted mild sigmoid diverticulitis without complication. ADDENDUM - This addendum is being placed on the report for a non-time dependent finding on a patient who is still in the emergency room (3C). A RUQ ultrasound should be performed to confirm that the hyperattenuating material in the gallbladder represents sludge rather than a solid gallbladder mass. These findings were communicated to Dr. West by Miguel A Murdock MD immediately upon identification of the findings at readout at 7:58 AM. Recommend follow up of the Incidental gallbladder findings Additional Imaging In 1 Month with right upper quadrant ultrasound. Dictated by: Miguel A Murdock M.D. The radiology attending physician has personally reviewed this study, and had reviewed and/or edited this written report and agrees with it. Electronically signed by: Cali Lanier M.D. Narrative 03/11/2022 8:30 AM CDT EXAMINATION: Computed tomography of the chest, abdomen and pelvis with intravenous contrast HISTORY: Ground-level fall TECHNIQUE: Transaxial computed tomographic images of the chest, abdomen and pelvis were obtained with intravenous contrast according to the standard protocol after the uneventful administration of 93 mL Opti-Ray 350 intravenous contrast. COMPARISON: CT chest 04/28/2016 FINDINGS: Chest: Visualized portions of the thyroid are normal. Patient is status post median sternotomy and coronary artery bypass grafting. Dense atherosclerotic calcification of the [place] coronary arteries. Multiple retained epicardial pacemaking leads. Heart size is enlarged. No pericardial effusion. No suspicious thoracic lymphadenopathy. Calcified granuloma in the left upper lobe. Mild bibasilar atelectasis or scarring. No pleural effusion or pneumothorax. Abdomen/Pelvis: Normal liver. The spleen, left adrenal gland, and pancreas are normal. Stable 2.7 cm right adrenal nodule dating back to 2016 with internal density most consistent with an adenoma on the prior noncontrast chest CT. A gallstone and sludge is noted within the gallbladder. No biliary ductal dilatation. The kidneys enhance symmetrically. No hydronephrosis. Mild prominence of the bilateral ureters is likely attributable to distention of the bladder. Multiple prostatic calcifications. There is mild fat stranding centered about a diverticulum in the sigmoid colon (series 2 image 233, series 900 image 55, and series 901 image 121.) No bowel obstruction. Small hiatal hernia. No free intraperitoneal fluid or gas. No suspicious abdominal or pelvic lymphadenopathy. Atherosclerotic calcification of the aortoiliac system. No acute fracture. Multilevel degenerative changes of the spine. Procedure Note Cali Lanier MD - 03/11/2022 EXAMINATION: Computed tomography of the chest, abdomen and pelvis with intravenous contrast HISTORY: Ground-level fall TECHNIQUE: Transaxial computed tomographic images of the chest, abdomen and pelvis were obtained with intravenous contrast according to the standard protocol after the uneventful administration of 93 mL Opti-Ray 350 intravenous contrast. COMPARISON: CT chest 04/28/2016 FINDINGS: Chest: Visualized portions of the thyroid are normal. Patient is status post median sternotomy and coronary artery bypass grafting. Dense atherosclerotic calcification of the [place] coronary arteries. Multiple retained epicardial pacemaking leads. Heart size is enlarged. No pericardial effusion. No suspicious thoracic lymphadenopathy. Calcified granuloma in the left upper lobe. Mild bibasilar atelectasis or scarring. No pleural effusion or pneumothorax. Abdomen/Pelvis: Normal liver. The spleen, left adrenal gland, and pancreas are normal. Stable 2.7 cm right adrenal nodule dating back to 2016 with internal density most consistent with an adenoma on the prior noncontrast chest CT. A gallstone and sludge is noted within the gallbladder. No biliary ductal dilatation. The kidneys enhance symmetrically. No hydronephrosis. Mild prominence of the bilateral ureters is likely attributable to distention of the bladder. Multiple prostatic calcifications. There is mild fat stranding centered about a diverticulum in the sigmoid colon (series 2 image 233, series 900 image 55, and series 901 image 121.) No bowel obstruction. Small hiatal hernia. No free intraperitoneal fluid or gas. No suspicious abdominal or pelvic lymphadenopathy. Atherosclerotic calcification of the aortoiliac system. No acute fracture. Multilevel degenerative changes of the spine. IMPRESSION: 1. No traumatic findings in the chest, abdomen, or pelvis. 2. Incidentally noted mild sigmoid diverticulitis without complication. ADDENDUM - This addendum is being placed on the report for a non-time dependent finding on a patient who is still in the emergency room (3C). A RUQ ultrasound should be performed to confirm that the hyperattenuating material in the gallbladder represents sludge rather than a solid gallbladder mass. These findings were communicated to Dr. West by Miguel A Murdock MD immediately upon identification of the findings at readout at 7:58 AM. Recommend follow up of the Incidental gallbladder findings Additional Imaging In 1 Month with right upper quadrant ultrasound. Dictated by: Miguel A Murdock M.D. The radiology attending physician has personally reviewed this study, and had reviewed and/or edited this written report and agrees with it. Electronically signed by: Cali Lanier M.D. Shawn Peng MD IMG CT PROCEDURES Ed ited Result - Final from Last 3 Months or Most Recently Relevant to Health Maintenance Insurance [facility] MEDICARE MEDICARE [facility] MEDICARE [facility] Care Teams Director Credit Risk Relationship Specialty Start Date End Date Yenny Navarrete MD PCP - General Family Practice 05/02/17
--- OUTSIDE RECORDS SUMMARY | 2024-08-09 11:19 | XMS_ITS | Encounter Summary ---
Author Organization [facility] Address [address] [facility] [address] [place] [address] Care Team Providers Care Wet Primer Powder Blender Name Role Phone Sahil Adler Primary Care Provider [phone] Sahil Adler Primary Care Provider [phone] Yenny Navarrete MD Primary Care Provider Encounter Details Date Type Department Care Team (Late st Contact Info) Description 08/01/2016 Orders Only [facility] ProviderCari MD [address] [place] [id number] Social History Tobacco Use Types Packs/Day Years Used Date Smoking Tobacco: Former Alcohol Use Standard Drinks/Week Comments Yes 0 (1 standard drink = 0.6 oz pur e alcohol) Sex and Gender Information Value Date Recorded Sex Assigned at Not on file Legal Sex Male 8:35 AM PROTOHISTORIAN Gender Identity Male 05/20/2019 10:19 AM PROTOHISTORIAN Sexual Orientation Straight 05/20/2019 10 :19 AM PROTOHISTORIAN documented as of this encounter Plan of Treatment Not on file documented as of this encounter Procedures Procedure Name Priority Date/Time Associated Diagnosis Comments CARDIOLOGY REPORT 08/01/2016 documented in this encounter Results * CARDIOLOGY REPORT (08/01/2016) Anatomical Region Laterality Modality Other Narrative 08/01/2016 Ordered by an unspecified provider. Historical Provider [facility] KASIE MELENDEZ Final Result documented in this encounter Visit Diagnoses Not on filedocumented in this encounter Care Teams Wet Primer Powder Blender Relationship Specialty Start Date End Date Sahil Adler [address] [address] PCP - General 08/09/16 05/01/17 Shail Adler [address] [place] [address] PCP - General 06/06/16 08/08/16 Yenny Navarrete MD [address] [place] [address] PCP - General Family Practice 05/02/17 documented as of this encounter
--- OUTSIDE RECORDS SUMMARY | 2024-08-09 11:19 | XMS_ITS | Clinical Summary ---
Author Organization [facility] [place] [address] Address [address] [place] [address] Care Team Providers Care Corner Cutter Name Role Phone Yenny Navarrete MD Primary Care Provider Allergies No known active allergies Medications acetaminophen [...] Surgery follow-up Coronary artery disease invo lving [place] coronary artery of [place] heart without angina pectoris 05/30/2016 Overview (08/16/2016): Coronary artery disease involving [place] coronary artery of [place] heart without angina pectoris S/P aortic valve [...] repair Dyslipidemia 04/02/2016 02/25/2022 Overview (08/16/2016): Dyslipidemia Encounters Date Type Department Care Team Description 06/15/2024 Telephone [facility] Medical [facility] Cardiology [address] [facility] [address] [place] [address] Adrian Salinas MD Med Refill; samples 05/26/2024 Telephone [facility] Cardiology [address] [place] [address] Adrian Salinas MD samples 05/11/2024 Telephone [facility] Cardiology [address] [place] [address] Adrian Salinas MD samples from Last 3 Months Immunizations Immunization Administration Dates Next Due Tdap 03/11/2022 Surgical History Surgery Date Site/Laterality Comments OTHER SURGICAL HISTORY aortic stenosis, CAD afib: AVR, CABG x3 PVI excision YOGI CATARACT EXTRACTION 01/10/2017 - 02/08/2017 CORONARY ARTERY BYPASS GRAFT 04-22-2016 CARDIAC VALVE REPLACEMENT 04-22-2016 VASECTOMY 05/12/1972 - 05/11/1973 Medical History Medical History Date Comments Superficial basal cell carcinoma Cancer, basal Cell Chronic bronchitis (HCC) Chronic bronchitis Deviated nasal septum Deviated n susan septum Hx Other Medical coronary artery disease; Comments: NJN 04/15/2016 - Hx Other Medical aortic valve di sease; Comments: NJN 04/15/2016 - Hx Other Medical Afib; Comments: NJN 04/15/2016 - Hx Other Medical aneurysm of asc ending aorta; Comments: NJN 04/15/2016 - Hx Other Medical aortic stenosis , CAD afib; Comments: NJN 06/06/2016 - Arthritis 2000 Heart disease 04/22/2016 Fracture of nasal bones 03/10/2022 Nosebleed Coronary artery disease 03/2016 CHF (congestive heart failure) (HCC) 04/2016 Family History Medical History Relation Name Comments Cancer Brother 1 Edson Other Brother 1 Edson Throat and stom ach; Cancer Brother 2 Syed Diabetes Brother 2 Syed Heart disease Brother 2 Syed Heart failure Brother 2 Syed Stroke Brother 2 Syed Stroke; Coronary artery disease Brother 3 Gal nary artery disease; Arthritis Father Syed COPD Father Syed Heart disease Father Syed cardiovascular disease; Cause of : cardiovascular disease Other Mother Dangelo Alive and well; Vision loss Mother Dangelo Hypertension Other Family history of Hypertension; Arthritis Sister Tiara COPD Sister Tiara Thyroid disease Sister Tiara Relation Name Status Comments Brother 1 Edson Brother 2 Syed Brother 3 Father Syed (Age 82) Mother Dangelo Alive Other Sister Tiara Social History Tobacco Use Types Packs/Day Years [...] on file Legal Sex Male 8:35 AM SOLAR SALES SPECIALIST Gender Identity Male 05/20/2019 10:19 AM SOLAR SALES SPECIALIST Sexual Orientation Straight 05/20/2019 10 :19 AM SOLAR SALES SPECIALIST Obstetrics History Last Filed Vital Signs Vital Sign Reading [...] 02/04/2024 7:47 AM CDT Plan of Treatment Health Maintenance Due Date Last Done Comments Albumin Creatinine Ratio, Urine 1950 Colon Cancer Screening-Colonoscopy 1950 Depression Screening 1950 Fall Risk Assessment 1950 Hemoglobin A1C 1950 Hepatitis C Screening 1950 Dilated Eye Exam 1950 Foot Exam 1950 Hepatitis B Screening 1968 Zoster Vaccine (1 of 2) 2000 Well Visit 65+ 11/02/2015 Pneumococcal vaccine 65+ (2 of 2 - PPSV23) 06/10/2017 04/15/2017 eGFR 03/11/2023 03/11/2022 Influenza Vaccine (#1) 2024 02/17/2019, 2017 Lipid Panel 02/03/2025 02/04/2024, 04/2 08/2022, 08/22/2021, Additional history exists DTaP/Tdap/Td Vaccine (2 - Td or Tdap) 03/11/2032 03/11/2022 Abdominal Aortic Aneurysm (A AA) Screen Completed 03/11/2022 Procedures Procedure Name Priority Date/Time Associated Diagnosis Comments POCT LIPID PANEL Routine 02/04/2024 7:47 AM CDT Mixed diabetic hyperlipidemia associated with type 2 diabetes mellitus (HCC) Coronary artery disease involving [place] coronary artery of [place] heart without angina pectoris EGFR STAT 03/11/2022 [...] 90 - 130 mL/min/1. 73 m2 [facility] Comment: Interpretive Data Reference Interval Normal >/= [...] 6:51 AM CDT 03/11/2022 6:59 AM CDT us Jihan Celestin Humphries DO LAB BLOOD ORDERABLES Final R esult [facility] Department [place] [address] * CT Chest Abdomen Pelvis W Contrast (03/11/2022 2:17 AM CDT) Anatomical Region Laterality Modality Body N/A Computed Tomogra phy 03/11/2022 2:42 AM CDT Addenda Addendum by Cali Lanier MD on 06/27/2022 8:04 AM SOLAR SALES SPECIALIST Follow up abdominal ultrasound completed 04/26/22 (welcome). Mary MANN, RN. Edited by: Mary Correa [...] and agrees with it. Electronically signed by: Cail Lanier M.D. Narrative 03/11/2022 8:30 AM CDT [...] bypass grafting. Dense atherosclerotic calcification of the [place] coronary arteries. Multiple retained epicardial pacemaking leads. [...] bypass grafting. Dense atherosclerotic calcification of the [place] coronary arteries. Multiple retained epicardial pacemaking leads. [...] Most Recently Relevant to Health Maintenance Insurance [employer] MEDICARE MEDICARE [facility] MEDICARE AARP Care Teams Corner Cutter Relationship Specialty Start Date End Date Yenny Navarrete MD PCP - General Family Practice 05/02/17
[2024-08-09 13:27] LABS: Basophils Percent Auto 0.5 % (0.2-1.2); Eosinophils Absolute Auto 0.2 K/mm3 (0-0.3); Eosinophils Percent Auto 2.1 % (0-4.4); Hematocrit 43.7 % (42.0-52.0); Hemoglobin 14.9 g/dL (14.0-18.0); Immature Granulocyte Absolute 0.05 K/mm3 (0.00-0.031); Immature Granulocyte Percent A 0.7 % (0-0.5); Lymphocytes Absolute Auto 0.77 K/mm3 (0.9-3.2); Lymphocytes Percent Auto 10.5 % (18.3-44.2); Mean Corpuscular HGB Conc 34.1 g/dl (32-36); Mean Corpuscular Hemoglobin 33.7 pg (26-34); Mean Corpuscular Volume 98.9 fl (80-100); Mean Platelet Volume 10.3 fl (7.4-10.4); Monocytes Absolute Auto 0.7 K/mm3 (0.1-0.6); Monocytes Percent Auto 9.2 % (2.6-8.5); Neutrophils Absolute Auto 5.6 K/mm3 (1.3-6.7); Platelet Count Result 185 k/mm3 (150-375); Red Blood Count 4.42 M/mm3 (4.6-6.20); Red Cell Distribution Width 12.3 % (11.5-14.5); White Blood Count 7.3 K/mm3 (4.5-10.0)
[2024-08-09 14:15] LABS: Creatinine Urine 43.1 mg/dL
[2024-08-09 14:15] LABS: Vitamin D 25 Hydroxy 39.9 ng/mL
[2024-08-09 14:23] LABS: MALB Creatinine Ratio 64.7 mg/g (0-30); Microalbumin Urine Random 27.9 mg/L (0-16.7)
[2024-08-09 14:28] LABS: Alanine Aminotransferase 26 U/L (6-50); Albumin Level 4.4 g/dL (3.5-5.1); Alkaline Phosphatase 89 U/L (38-126); Anion Gap 10 mmol/L (4-12); Aspartate Amino Transferase 52 U/L (17-59); Bilirubin,Total 1.5 mg/dL (0.2-1.3); Blood Urea Nitrogen 21 mg/dL (9-20); Calcium 9.8 mg/dL (8.4-10.2); Carbon Dioxide 30 mmol/L (22-30); Chloride 94 mmol/L (98-107); Cholesterol 164 mg/dL (0-200); Estimated Glomerular Filt Rate 57; Glucose 142 mg/dL (65-110); HDL Direct 84 mg/dL; Potassium 4.1 mmol/L (3.4-5.0); Sodium 134 mmol/L (137-145); Triglycerides 72 mg/dL (<150)
[2024-08-09 14:44] LABS: LDL Cholesterol Direct 60 mg/dL
[2024-08-09 14:47] LABS: Hemoglobin A1C 6.6 % (<5.7)
[2024-08-09 15:25] LABS: Vitamin B12 > 1000.0 pg/mL (239-931)
== END 2024-08-09 10:09 | disposition home or self-care (01) ==
PROVIDERS: PCP Family Medicine; Visit Provider Family Medicine
DX: E11.9 Type 2 diabetes mellitus without complications (principal); I10 Essential (primary) hypertension; E55.9 Vitamin D deficiency, unspecified; E78.5 Hyperlipidemia, unspecified; E53.8 Deficiency of other specified B group vitamins
CPT/HCPCS: 36415; 80053; 80061; 82043; 82306; 82607; 83036; 84443; 85025

== ENCOUNTER 2025-02-15 11:33 | Outpatient (CLI) | payer MEDICARE, SELFPAY ==
[2025-02-15 13:24] LABS: Alanine Aminotransferase 19 U/L (6-50); Albumin Level 4.6 g/dL (3.5-5.1); Alkaline Phosphatase 99 U/L (38-126); Anion Gap 7 mmol/L (4-12); Aspartate Amino Transferase 73 U/L (17-59); Bilirubin,Total 0.8 mg/dL (0.2-1.3); Blood Urea Nitrogen 26 mg/dL (9-20); Calcium 9.7 mg/dL (8.4-10.2); Carbon Dioxide 32 mmol/L (22-30); Chloride 96 mmol/L (98-107); Estimated Glomerular Filt Rate 56; Glucose 147 mg/dL (65-110); Potassium 4.9 mmol/L (3.4-5.0); Sodium 135 mmol/L (137-145); Total Protein 7.5 g/dL (6.3-8.2)
[2025-02-15 14:47] LABS: Hemoglobin A1C 6.4 % (<5.7)
== END 2025-02-15 11:34 | disposition home or self-care (01) ==
PROVIDERS: PCP Family Medicine; Visit Provider Family Medicine
DX: E11.9 Type 2 diabetes mellitus without complications (principal); Z79.899 Other long term (current) drug therapy; I10 Essential (primary) hypertension
CPT/HCPCS: 36415; 80053; 83036